=== PATIENT | female | born 1995 | race Two or more races ===

== ENCOUNTER 2018-05-04 13:18 | Emergency (ER) | payer SELFPAY ==
[~2018-05-04] VITALS: Ht 162.6 cm; Wt 65.8 kg
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
[2018-05-04] MEDS ORDERED: ACETAMINOPHEN 325 MG TABLET PO ONE (14:30)
[2018-05-04] MEDS ORDERED: ACETAMINOPHEN 325 MG TABLET ONE (14:53)
--- NOTE | 2018-05-04 15:11 | NUR ---
Patient discharged to home in stable condition. Written and verbal after care instructions given. Patient verbalizes understanding of instruction.
[2018-05-04 15:54] VITALS: BP 115/74
== END 2018-05-04 15:09 | disposition home or self-care (01) ==
LOC: ER 13:20
DX: M79.632 Pain in left forearm (principal); R07.81 Pleurodynia; M79.652 Pain in left thigh; F17.200 Nicotine dependence, unspecified, uncomplicated; Z98.890 Other specified postprocedural states; V03.90XA Pedestrian on foot injured in collision with car, pick-up truck or van, unspecified whether traffic or nontraffic accident, initial encounter; Y93.01 Activity, walking, marching and hiking; Y92.488 Other paved roadways as the place of occurrence of the external cause; Y99.8 Other external cause status
CPT/HCPCS: 73090; 73130; 84703; 99284; A4606